=== PATIENT | female | born 2000 | race Caucasian/White ===

== ENCOUNTER 2024-05-21 08:27 | Emergency (ER) | payer BC, SELFPAY ==
--- NOTE | 2024-05-21 08:34 | XR_ITS ---
PROCEDURE INFORMATION: Exam: XR Right Shoulder Exam date and time: 05/21/2024 8:34 AM Age: 24 years old Clinical indication: Pain; Shoulder; Right TECHNIQUE: Imaging protocol: Radiologic exam of the right shoulder. Views: 2 or more views. COMPARISON: No relevant prior studies available. FINDINGS: Bones/joints: Osseous structures of the shoulder are grossly normal. Acromioclavicular joint is without dislocation or fracture. Subacromial space height is normal. Adjacent ribs are normal. Glenohumeral joint, clavicle, acromion, and coracoid process appear grossly normal. Soft tissues: Normal. IMPRESSION: Normal shoulder.
[2024-05-21 08:42] VITALS: BP 118/70; PULSE 72; RESP 18; TEMP 36.6; O2SAT 100; BMI 20.2
--- NOTE | 2024-05-21 09:00 | EXP.UTC ---
Discharge Plan Disposition Patient Disposition: Home, Self-Care Condition: Good Prescriptions Prescriptions: New methylprednisolone 4 mg Tablets,Dose Pack 4 mg PO DIRECTED 6 Days Qty: 21 0RF Rx Instructions: Take 1 pack as directed for 6 days Referrals Follow up/Referrals: Neo Gomes APRN [Primary Care Provider] - See instructions Activity Restrictions/Add. Instructions Additional Instructions/Restrictions: Rest the extremity. Take the medication as directed. Follow up with Dr. Steward (orthopedics). I put in a referral but you need to call his office and schedule an appointment. Follow up with your regular doctor. GO TO THE ER FOR ANY WORSENING SYMPTOMS Clinical Impressions Clinical Impression: Pain in right shoulder, Tendinopathy of right shoulder Instructions Patient Instructions: DI for Shoulder Tendinopathy, Methylprednisolone, Dexamethasone Injection Print Language Print Language: Estonian Discharge ED Provider: Tl Vidal [facility] [place] HPI General Stated complaint: Pain in R shoulder Mode of Arrival: Ambulatory Source of Information: Patient Time Seen by Provider: 05/21/24 09:00 Description of Symptoms (Recalled from Triage Doc. by RN): PAIN IN RIGHT SHOULDER (FRONT) HURTS WHEN MORE PRESSURE APPLIED OR LIFTING SOMETHING UP,FEELS LIKE A POPPING AND SHARP PAIN HEENT Symptoms (Recalled from RN notes): No Resp Symptoms (Recalled from RN notes): No Skin Symptoms (Recalled from RN notes): No MS Symptoms (Recalled from RN notes): Yes Functional Status (Recalled from RN notes): UNABLE TO LIFT ARM ABOVE HEAD Related Data Previous Rx's ?Medication ?Instructions ?Recorded methylprednisolone 4 mg tablets in 4 mg PO DIRECTED 6 days #21 tabs 05/21/24 a dose pack Allergies Allergy/AdvReac Type Severity Reaction Status Date / Time No Known Allergies Allergy Verified 04/03/18 11:56 Worker's Comp Is this a Worker's Comp case?: No [facility] Disclaimer: The information contained in this section may have been updated after the patient was seen, as this information can be updated by other users. Social History Smoking Status: Never smoker alcohol intake: never current occupational status: employed ROS Obtained: Yes All systems reviewed & no additional complaints except as documented Constitutional Constitutional: Denies chills and Denies fever(s) Eyes Eyes: Denies eye discharge ENT Ears, Nose, Mouth, and Throat: Denies dizziness, Denies otalgia and Denies sore throat Cardiovascular Cardiovascular: Denies chest pain Respiratory Respiratory: Denies shortness of breath, Denies chest congestion, Denies cough, Denies stridor and Denies wheezing Gastrointestinal Gastrointestingal: Denies nausea or vomiting Musculoskeletal Musculoskeletal: Reports system reviewed and no additional complaints, except as documented and Denies arthralgias Integumentary/Breasts Skin/Breast: Denies rash Neurologic Neurologic: Denies dizziness and Denies paresthesias Allergic/Immunologic Allergic/Immunologic: Denies wheezing Physical Exam General General appearance: alert and in no apparent distress Head Head exam: atraumatic, normocephalic and normal inspection Eye Eye exam: Present normal appearance, PERRL and EOMI ENT ENT exam: Present normal exam, normal oropharynx, mucous membranes moist, TM's normal bilaterally and normal external ear exam Neck Neck exam: Present normal inspection, full ROM and trachea midline; Absent meningismus or lymphadenopathy Chest Chest inspection: Present normal inspection and symmetric chest wall rise; Absent tenderness Respiratory Respiratory exam: Present normal lung sounds bilaterally; Absent respiratory distress Cardiovascular Cardiovascular exam: Present regular rate and normal rhythm; Absent JVD Abdominal Exam Abdominal exam: Present soft and normal bowel sounds; Absent distention, tenderness or guarding Extremities Exam Extremities exam: Present normal inspection, full ROM and normal capillary refill; Absent calf tenderness Back Exam Back exam: Present normal inspection; Absent tenderness Neurological Exam Neurological exam: Present alert and oriented X3 Psychiatric Psychiatric exam: Present normal affect and normal mood Skin Skin exam: Present warm, dry, intact and normal color Lymphatic Lymphatic Findings: no adenopathy Medical Decision Making Medical Records Medical records reviewed: No I reviewed the patient's medical records. Screening: Per USPSTF and CDC recommendations, given the prevalence of disease in our region, it is our hospital?s policy to screen for HIV and viral Hepatitis for all patients aged 18 and over and those with ongoing risk factors. Alexis Inquiry Pt receiving controlled substance: No Vital Signs: 05/21/24 08:42 Temperature 97.9 F Temperature Source Temporal Artery Scan Pulse Rate [Left Radial] 72 Respiratory Rate 18 Blood Pressure [Left Arm] 118/70 Blood Pressure Mean [Left Arm] 86 02 Sat by Pulse Oximetry 100 Orders (Tests/Meds): ORDERS Category Date Time Status Shoulder XR right miminum 2 views [XR shoulder RT min Exams 05/21/24 08:34 Taken 2V] Stat
[2024-05-21] MEDS: KETOROLAC 60MG/2ML VIAL 60 MG IM (09:44)
[2024-05-21] MEDS: DEXAMETHASONE 4MG/ML 1ML VIAL 8 MG IM (09:44)
[2024-05-21 10:09] VITALS: BP 118/70; PULSE 72; RESP 18; TEMP 36.6
== END 2024-05-21 10:10 | disposition home or self-care (01) ==
PROVIDERS: Emergency Provider Nurse Practitioner Family; PCP Nurse Practitioner Family
DX: M25.511 Pain in right shoulder (principal)
CPT/HCPCS: 73030; 96372; 99213; G0381; J1100; J1885